=== PATIENT | female | born 1940 | race Two or more races ===

== ENCOUNTER 2025-04-02 05:13 | Day surgery (SDC) | payer OTHER ==
[2020-04-02] MEDS: LIDOCAINE/PF 2% 5 ML VIAL ONE (07:00)
[~2025-04-02] VITALS: Ht 154.9 cm; Wt 43.2 kg
[~2025-04-02 05:13] MED LIST: CYCLOPENTOLATE HCL 1% 2 ML OPHTHALMIC SOLUTION ONE; KETOROLAC TROMETHAMINE 0.5% 5 ML OPHTHALMIC SOLUTION ONE; MOXIFLOXACIN HCL 0.5% 3 ML OPHTHALMIC SOLUTION ONE; PHENYLEPHRINE HCL 2.5% 2 ML OPHTHALMIC SOLUTION ONE; PROPARACAINE HCL 0.5% 15 ML OPHTHALMIC SOLUTION ONE; RINGERS SOLUTION,LACTATED 500 ML IV ONE; TETRACAINE HCL/PF 0.5% 4 ML OPHTHALMIC SOLUTION ONE; TROPICAMIDE 1% 2 ML OPHTHALMIC SOLUTION ONE
[2025-04-02] MEDS ORDERED: FentaNYL CITRATE PF 100 MCG/2 ML VIAL IM ONE (05:14)
[2025-04-02] MEDS ORDERED: MIDAZOLAM HCL 2 MG/2 ML VIAL IVP ONE (05:14)
[2025-04-02] MEDS: RINGERS SOLUTION,LACTATED 500 ML IV ONE (06:06)
[2025-04-02] MEDS: MOXIFLOXACIN HCL 0.5% 3 ML OPHTHALMIC SOLUTION OD SCH (06:07)
[2025-04-02] MEDS: KETOROLAC TROMETHAMINE 0.5% 5 ML OPHTHALMIC SOLUTION OD SCH (06:07)
[2025-04-02] MEDS: TROPICAMIDE 1% 2 ML OPHTHALMIC SOLUTION OD SCH (06:07)
[2025-04-02] MEDS: PROPARACAINE HCL 0.5% 15 ML OPHTHALMIC SOLUTION OD ONE (06:07)
[2025-04-02] MEDS: PHENYLEPHRINE HCL 2.5% 2 ML OPHTHALMIC SOLUTION OD SCH (06:07)
[2025-04-02] MEDS: TETRACAINE HCL/PF 0.5% 4 ML OPHTHALMIC SOLUTION OD ONE (06:07)
[2025-04-02] MEDS: CYCLOPENTOLATE HCL 1% 2 ML OPHTHALMIC SOLUTION OD SCH (06:08)
[2025-04-02] MEDS: TETRACAINE HCL/PF 0.5% 4 ML OPHTHALMIC SOLUTION OD SCH (06:08)
[2025-04-02] MEDS ORDERED: PrednisoLONE ACETATE 1% 5 ML OPHTHALMIC SUSPENSION ONE (07:00)
[2025-04-02] MEDS: EPINEPHrine 1:1,000 [1 MG/ML] VIAL ONE (07:00)
[2025-04-02] MEDS: NEOMYCIN/POLYMYXIN B/DEXAMETH 3.5 GM OPHTHALMIC OINTMENT ONE (07:00)
[2025-04-02] MEDS: POVIDONE-IODINE 5% 30 ML OPHTHALMIC SOLUTION ONE (07:00)
== END 2025-04-02 09:50 | disposition home or self-care (01) ==
LOC: SURGERY 05:13
PROVIDERS: ATTEND Ophthalmology
DX: H25.11 Age-related nuclear cataract, right eye (principal); J45.909 Unspecified asthma, uncomplicated; Z88.0 Allergy status to penicillin; M81.0 Age-related osteoporosis without current pathological fracture; Z79.899 Other long term (current) drug therapy
CPT/HCPCS: 93005; J0171; J2250; J3010; J3490; J7120

== ENCOUNTER 2025-05-07 06:43 | Day surgery (SDC) | payer OTHER, MEDICAID ==
[~2025-05-07] VITALS: Ht 154.9 cm; Wt 47.7 kg
[~2025-05-07 06:43] MED LIST changes: -PROPARACAINE HCL 0.5% 15 ML OPHTHALMIC SOLUTION ONE; +PrednisoLONE ACETATE 1% 5 ML OPHTHALMIC SUSPENSION ONE; -TROPICAMIDE 1% 2 ML OPHTHALMIC SOLUTION ONE; +TROPICAMIDE 1% 3 ML OPHTHALMIC SOLUTION ONE
[2025-05-07] MEDS ORDERED: HYALURONATE SOD 8.5MG/0.85ML 10 MG/ML SYRINGE IO ONE (06:44)
[2025-05-07] MEDS ORDERED: PrednisoLONE ACETATE 1% 5 ML OPHTHALMIC SUSPENSION OS ONE (06:44)
[2025-05-07] MEDS: KETOROLAC TROMETHAMINE 0.5% 5 ML OPHTHALMIC SOLUTION OS SCH (07:39)
[2025-05-07] MEDS: PROPARACAINE HCL 0.5% 15 ML OPHTHALMIC SOLUTION OS ONE (07:39)
[2025-05-07] MEDS: TROPICAMIDE 1% 3 ML OPHTHALMIC SOLUTION OS SCH (07:40)
[2025-05-07] MEDS: CYCLOPENTOLATE HCL 1% 2 ML OPHTHALMIC SOLUTION OS SCH (07:40)
[2025-05-07] MEDS: PHENYLEPHRINE HCL 2.5% 2 ML OPHTHALMIC SOLUTION OS SCH (07:40)
[2025-05-07] MEDS: MOXIFLOXACIN HCL 0.5% 3 ML OPHTHALMIC SOLUTION OS SCH (07:41)
[2025-05-07] MEDS: TETRACAINE HCL/PF 0.5% 4 ML OPHTHALMIC SOLUTION OS SCH (07:41)
[2025-05-07] MEDS: RINGERS SOLUTION,LACTATED 500 ML IV ONE (07:53)
[2025-05-07] MEDS ORDERED: TETRACAINE HCL/PF 0.5% 4 ML OPHTHALMIC SOLUTION OS ONE (08:30)
[2025-05-07] MEDS: PROPARACAINE HCL 0.5% 15 ML OPHTHALMIC SOLUTION ONE (08:50)
[2025-05-07] MEDS: POVIDONE-IODINE 5% 30 ML OPHTHALMIC SOLUTION ONE (08:55)
[2025-05-07] MEDS: LIDOCAINE/PF 1% 2 ML VIAL ONE (08:56)
[2025-05-07] MEDS: BALANCED SALT 15 ML OPHTHALMIC IRRIG.SOLN ONE (08:56)
[2025-05-07] MEDS: EPINEPHrine 1:1,000 [1 MG/ML] VIAL ONE (08:56)
[2025-05-07] MEDS: NEOMYCIN/POLYMYXIN B/DEXAMETH 3.5 GM OPHTHALMIC OINTMENT ONE (09:12)
[2025-05-07] MEDS ORDERED: MIDAZOLAM HCL 2 MG/2 ML VIAL ONE (12:00)
[2025-05-07] MEDS ORDERED: FentaNYL CITRATE PF 100 MCG/2 ML VIAL ONE (12:00)
== END 2025-05-07 10:30 | disposition home or self-care (01) ==
LOC: SDS 06:43
PROVIDERS: ATTEND Ophthalmology
DX: H25.12 Age-related nuclear cataract, left eye (principal); Z88.0 Allergy status to penicillin; H04.123 Dry eye syndrome of bilateral lacrimal glands; Z79.899 Other long term (current) drug therapy; Z98.890 Other specified postprocedural states
CPT/HCPCS: 66984; J0169; J3490; J7120; V2632; J2250; J3010